=== PATIENT | male | born 1950 | race Caucasian/White ===

== ENCOUNTER 2017-01-12 08:10 | Outpatient (CLI) | payer MEDICARE, OTHER ==
[2017-01-12] MEDS ORDERED: IOPAMIDOL-300 50 ML VIAL IVP ONE (09:18)
== END 2017-01-12 08:11 | disposition home or self-care (01) ==
DX: Z85.51 Personal history of malignant neoplasm of bladder (principal); R31.29 Other microscopic hematuria; N40.1 Benign prostatic hyperplasia with lower urinary tract symptoms; R33.9 Retention of urine, unspecified; R35.1 Nocturia
CPT/HCPCS: 74178; Q9967

== ENCOUNTER 2017-08-13 09:04 | Outpatient (CLI) | payer MEDICARE, OTHER | END 2017-08-13 09:05 | disposition home or self-care (01) | LOC: LAB 09:04 | PROVIDERS: ATTEND Urology | DX: N40.1 Benign prostatic hyperplasia with lower urinary tract symptoms (principal); R35.1 Nocturia | CPT/HCPCS: 36415; 84153 ==

== ENCOUNTER 2018-04-26 15:42 | Outpatient (CLI) | payer MEDICARE, OTHER | END 2018-04-26 15:43 | disposition home or self-care (01) | LOC: LAB 15:42 | PROVIDERS: ATTEND Urology | DX: R97.20 Elevated prostate specific antigen [PSA] (principal) | CPT/HCPCS: 36415; 84153 ==

== ENCOUNTER 2019-05-24 15:36 | Outpatient (CLI) | payer MEDICARE, OTHER | END 2019-05-24 15:37 | disposition home or self-care (01) | LOC: LAB 15:36 | PROVIDERS: ATTEND Urology | DX: N40.1 Benign prostatic hyperplasia with lower urinary tract symptoms (principal); R97.20 Elevated prostate specific antigen [PSA] | CPT/HCPCS: 36415; 84153 ==

== ENCOUNTER 2019-09-09 09:40 | Outpatient (CLI) | payer MEDICARE, OTHER ==
--- NOTE | 2019-09-09 22:54 | MRI Report ---
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 CLINICAL HISTORY: Left-sided radiculopathy. COMPARISON: ABDOMEN/PELVIS W/WO 01/12/2017 8:48 AM LUMBAR SPINE COMPLETE 04/03/2014 4:18 PM. TECHNIQUE: Multiplanar, multisequence T1-weighted and fluid-sensitive sequences of the lumbar spine from T11 to S1 without contrast. Other: None. FINDINGS: Spinal Canal: The conus terminates at L1. The conus medullaris is unremarkable. Alignment: Retrolisthesis at L3-L4 measures 4 mm which appears slightly progressed compared to the prior CT of the abdomen and pelvis. Bone Marrow: Five [id number] lumbar vertebral bodies are confirmed on the CT. There is susceptibility artifact related to anterior and posterior fusion changes from L4-S1. Given this artifact, there is suggestion of mild type I Modic endplate changes posteriorly at L3-L4. Small chronic Schmorl's nodes are noted from all levels from T11-T12 throughL2-L3. Disk Levels/Facets: T11-T12: Unremarkable on sagittal images. T12-L1: A minimal disk bulge is present without spinal canal or foraminal stenosis. L1-L2: Unremarkable. L2-L3: There is mild right foraminal narrowing due to facet arthropathy. The spinal canal and left foramen are patent. L3-L4: A disk bulge with facet arthropathy, ligamentum flavum infolding, and dorsal epidural fat result in moderate spinal canal stenosis. Mild fluid is present in the facet joints, greater on the right. This results in moderate bilateral foraminal narrowing. These findings appear slightly progressed compared to the CT. L4-L5: Anterior and posterior fusion changes are present. The spinal canal and foramina appear patent. L5-S1: Anterior and posterior fusion changes are present. There appears to be a residual or recurrent right paracentral disk herniation resulting in mild spinal canal stenosis. It abuts but does not impinge the descending right S1 nerve root in the lateral recess. There is mild bilateral foraminal narrowing due to disk height loss and facet arthropathy. Musculature: There is mild to moderate diffuse fatty atrophy of the posterior paraspinal muscles, more prominent at the surgical levels. Other: The partially visualized retroperitoneum is unremarkable. IMPRESSION: 1. Degenerative changes at L3-L4 appear mildly progressed compared to the CT of the abdomen and pelvis from 01/12/17. There is moderate spinal canal stenosis at this level due to disk bulging, facet arthropathy, ligamentum flavum infolding, and prominent dorsal epidural fat. Moderate bilateral foraminal narrowing and type I Modic endplate changes are also present at this level. 2. The remainder of the conus medullaris and cauda equina are unremarkable. 3. No evidence of high-grade spinal canal or foraminal stenosis at any other lumbar level. Comment: The following findings are so common in adults without low back pain that while we report their presence, they must be interpreted with caution and in the context of the clinical situation. (Reference Lizzk et al, Spine 2001) Prevalence of findings in patients without low back pain: Disk degeneration (any evidence): 92% Disk desiccation/T2 signal loss: 83% Disk height loss: 56% Disk bulge: 64% Disk protrusion: 32% Annular tear/high intensity zone: 38% RADIA
== END 2019-09-09 09:41 | disposition home or self-care (01) ==
LOC: DI 09:40
PROVIDERS: ATTEND Physical Medicine & Rehabilitation Pain Medicine
DX: M47.816 Spondylosis without myelopathy or radiculopathy, lumbar region (principal); M51.26 Other intervertebral disc displacement, lumbar region; M48.061 Spinal stenosis, lumbar region without neurogenic claudication
CPT/HCPCS: 72148

== ENCOUNTER 2019-11-30 08:00 | Outpatient (CLI) | payer MEDICARE, OTHER | END 2019-11-30 23:59 | disposition home or self-care (01) | LOC: LAB 08:00 | PROVIDERS: ATTEND Urology | DX: N40.1 Benign prostatic hyperplasia with lower urinary tract symptoms (principal); R97.20 Elevated prostate specific antigen [PSA] | CPT/HCPCS: 36415; 84153 ==

== ENCOUNTER 2020-02-11 18:59 | Inpatient (IN) | payer MEDICARE, OTHER ==
[2020-02-11] MEDS ORDERED: oxyCODONE 5 MG TABLET PO STA (19:35)
[2020-02-11] MEDS ORDERED: CYCLOBENZAPRINE 10 MG TABLET PO STA (20:39)
[2020-02-11] MEDS ORDERED: LIDOCAINE PATCH 5% TOP STA (20:40)
--- NOTE | 2020-02-11 20:57 | CT Report ---
Reason: blunt back trauma, L lower thoracic Procedure Date: 02/11/2020 Accession Number: [id number] / [id number] Procedure: CT - CHEST WO CPT Code: Final Report FULL RESULT: EXAM: CT CHEST EXAM DATE: 02/11/2020 08:14 PM. CLINICAL HISTORY: Blunt back trauma, left lower thoracic. COMPARISONS: None. TECHNIQUE: Routine helical CT imaging was performed through the chest. IV contrast: None. Reconstructions: Coronal and sagittal. In accordance with CT protocol optimization, one or more of the following dose reduction techniques were utilized for this exam: automated exposure control, adjustment of mA and/or KV based on patient size, or use of iterative reconstructive technique. FINDINGS: Lungs/Pleura: Small left pneumothorax. No significant hemothorax. Lungs essentially clear with residual mild scarring/atelectasis. Mediastinum: The heart and great vessels appear unremarkable with exception of severe coronary calcifications. No adenopathy. Small hiatal hernia. Visualized Abdomen: Fatty liver. Previous cholecystectomy. Small left renal cyst. No imaging follow-up required per concensus recommendations based on imaging criteria. Bones: Acute appearing minimally displaced left eighth through tenth rib fractures. Additional acute left T9 and T10 transverse process fractures as well as fractures of the T8 and T9 spinous processes. Chronic appearing multilevel left-sided rib fractures with incomplete union at the eighth through tenth ribs laterally. No vertebral body fracture identified. Other: Post left thyroidectomy. IMPRESSION: 1. Small left pneumothorax secondary to minimally displaced acute left eighth through tenth rib fractures. 2. Acute left T9 and T10 left-sided transverse process fractures. Additional T8 and T9 spinous process fractures. 3. Severe coronary calcifications. 4. Small hiatal hernia. 5. Fatty liver. RADIA The critical result notification system was initiated by Dr. Elvis Banerjee at 08:50 PM on 02/11/2020. The above critical result findings were discussed with Woo Blunt by Dr. Elvis Banerjee at 08:52 PM on 02/11/2020.
--- NOTE | 2020-02-11 21:01 | ED Physician Documentation ---
History of Present Illness - Stated complaint Stated Complaint: BACK INJ FALL - Chief complaint Chief Complaint: Trauma Ch/Bk - History obtained from History obtained from: Patient - History of Present Illness Timing: Today Pain level max: 9 Pain level now: 9 - Additonal information Additional information: 69-year-old male presents to the emergency department after a fall off of a counter today. Landed on his back and left ribs. History of left rib fractures in the past. No head injury. No neck pain. Does not take blood thinners. Worse with movement and better with rest. Review of Systems Ten Systems: 10 systems reviewed and negative Constitutional: denies: Fever, Chills Ears: denies: Ear pain Nose: denies: Rhinorrhea / runny nose, Congestion Throat: denies: Sore throat Cardiac: denies: Chest pain / pressure Respiratory: denies: Cough GI: denies: Abdominal Pain, Nausea, Vomiting, Diarrhea Skin: denies: Rash Musculoskeletal: denies: Neck pain Neurologic: denies: Focal weakness, Numbness, Confused, Altered mental status, Headache PD PAST MEDICAL HISTORY - Past Medical History Cardiovascular: Hypertension, High cholesterol Respiratory: Shortness of breath, Other Endocrine/Autoimmune: Other GI: GERD, Other : Nocturia, Other HEENT: None Psych: Anxiety Musculoskeletal: Osteoarthritis Derm: None - Past Surgical History Past Surgical History: Yes General: Cholecystectomy, Appendectomy, Colonoscopy, EGD Ortho: Rotator cuff repair, Spine surgery HEENT: Tonsil/Adenoidectomy Derm: Skin cancer surgery, Other - Present Medications Home Medications: Ambulatory Orders Medication Instructions Recorded Confirmed Amlodipine Besylate 5 mg PO DAILY 05/12/13 03/04/15 Lisinopril 20 mg PO DAILY 05/12/13 03/04/15 Aspirin [Aspir 81] 81 mg PO DAILY 02/26/15 03/04/15 Pantoprazole [Protonix] 40 mg PO DAILY 02/26/15 03/04/15 allopurinoL [Allopurinol] 300 mg PO DAILY 02/26/15 03/04/15 Cephalexin 500 mg PO TID #15 capsule 12/06/15 HYDROcod/ACETAM 5/325 [[place] 5/325] 1 - 2 ea PO Q6H PRN #30 tablet 12/06/15 - Allergies Allergies/Adverse Reactions: Allergies Allergy/AdvReac Type Severity Reaction Status Date / Time No Known Drug Allergies Allergy Verified 02/11/20 19:06 - Social History Does the pt smoke?: No Smoking Status: Never smoker Does the pt drink ETOH?: Yes Does the pt have substance abuse?: No - Immunizations Immunizations are current?: Yes - POLST Patient has POLST: No PD ED PE NORMAL - Vitals Vital signs reviewed: Yes - General General: Alert and oriented X 3 - HEENT HEENT: Atraumatic, PERRL, Ears normal, Moist mucous membranes - Neck Neck: Supple, no meningeal sign, No bony TTP, Other (Full range of motion without pain. No step-off or deformity) - Cardiac Cardiac: RRR, Strong equal pulses - Respiratory Respiratory: No respiratory distress, Clear bilaterally - Abdomen Abdomen: Soft, Non tender, Non distended - Back Back: Other (Tender to palpation approximately T9 and 10. Also tender over the ribs approximately 8 through 11. Mild swelling. No crepitus. Left-sided ribs.) - Derm Derm: Warm and dry, No rash - Extremities Extremities: No deformity, No tenderness to palpate, Normal ROM s pain, No edema - Neuro Neuro: Alert and oriented X 3, re recording mixer 2-12 intact, No motor deficit, No sensory deficit, Normal speech Eye Opening: Spontaneous Motor: Obeys Commands Verbal: Oriented GCS Score: 15 - Psych Psych: Normal mood, Normal affect Results - Vitals Vitals: Vital Signs - 24 hr 02/11/20 19:06 Temperature 36.5 C Heart Rate 93 Respiratory 16 Rate Blood Pressure 155/74 H O2 Saturation 96 Oxygen O2 Source Room air - Labs Labs: Laboratory Tests 02/11/20 02/11/20 02/11/20 21:20 21:20 21:20 WBC 11.2 H RBC 4.43 L Hgb 15.1 Hct 45.3 MCV 102.3 H MCH 34.1 H MCHC 33.3 RDW 16.0 H Plt Count 224 MPV 10.6 Neut # (Auto) 8.1 H Lymph # (Auto) 1.8 Butler # (Auto) 1.0 Eos # (Auto) 0.2 Baso # (Auto) 0.1 Absolute Nucleated RBC 0.00 Nucleated RBC % 0.0 PT 10.9 INR 1.0 APTT 25.4 Sodium 139 Potassium 4.2 Chloride 102 Carbon Dioxide 24 Anion Gap 13.0 BUN 17 Creatinine 1.2 Estimated GFR (MDRD) 60 L Glucose 101 H Calcium 9.4 Total Bilirubin 0.7 AST 51 H ALT 59 Alkaline Phosphatase 66 Total Protein 7.7 Albumin 4.4 Globulin 3.3 Albumin/Globulin Ratio 1.3 Lipase 36 Ethyl Alcohol < 5.0 - Rads (name of study) CT chest without Radiology: Prelim report reviewed, EMP read contemporaneously, See rad report (1. Small left pneumothorax secondary to minimally displaced acute left eighth through tenth rib fractures. 2. Acute left T9 and T10 left-sided transverse process fractures. Additional T8 and T9 spinous process fractures. 3. Severe coronary calcifications. 4. Small hiatal hernia. 5. Fatty liver. ) PD MEDICAL DECISION MAKING - ED course Complexity details: reviewed results, re-evaluated patient, considered differential, d/w patient, d/w search engine optimization consultant ED course: Patient presents to the emergency department after a fall today at home. Has 2- 1/2 rib fractures. Nondisplaced. Has 2 left-sided transverse process fractures and 2 spinous process fractures. All of these would be nonoperative and supportive care. Neurovascularly intact. Has a small left pneumothorax that does not need a chest tube at this time. Discussed the case with Dr. Albarado, general surgery who will place the patient in observation and to reassess in the morning. We will place him in the hospital for pain control, incentive spirometry and pulmonary toilet. This document was made in part using voice recognition software. While efforts are made to proofread this document, sound alike and grammatical errors may occur. Departure - Departure Disposition: ED Place in Observation Clinical Impression: Pneumothorax on left, Spinous process fracture Ribs, multiple fractures Qualifiers: Encounter type: initial encounter Fracture type: closed Laterality: left Qualified Code(s): S22.42XA - Multiple fractures of ribs, left side, initial encounter for closed fracture Condition: Stable Discharge Date/Time: 02/11/20 22:36
[2020-02-11] MEDS ORDERED: HYDROmorphone 1 MG/ML CARPUJECT IVP STA (21:10)
[2020-02-11] MEDS ORDERED: SODIUM CHLORIDE FLUSH 0.9% 10 ML SYRINGE IVP PRN (21:23)
[2020-02-11] MEDS ORDERED: oxyCODONE 5 MG TABLET PO PRN (21:23)
[2020-02-11] MEDS ORDERED: ONDANSETRON 4 MG/2 ML VIAL IVP PRN (21:23)
[2020-02-11] MEDS ORDERED: HYDROmorphone 0.5 MG/0.5 ML SYRINGE IVP PRN (21:23)
[2020-02-11 21:29] LABS: BASOPHILS # (AUTO) 0.1 10^3/uL (0.0-0.1); BASOPHILS % (AUTO) 0.7 %; EOSINOPHILS # (AUTO) 0.2 10^3/uL (0.0-0.7); EOSINOPHILS % (AUTO) 1.5 %; HGB - HEMOGLOBIN 15.1 g/dL (14.0-18.0); LYMPHOCYTES # (AUTO) 1.8 10^3/uL (1.5-3.5); LYMPHOCYTES % (AUTO) 15.8 %; MEAN CORPUSCULAR HEMOGLOBIN 34.1 pg (27.0-31.0); MEAN CORPUSCULAR HGB CONC 33.3 g/dL (32.0-36.0); MEAN CORPUSCULAR VOLUME 102.3 fL (80.0-94.0); MEAN PLATELET VOLUME 10.6 fL (7.4-11.4); MONOCYTES % (AUTO) 9.2 %; NEUTROPHILS # (AUTO) 8.1 10^3/uL (1.5-6.6); NEUTROPHILS % (AUTO) 71.8 %; PLT - PLATELET COUNT 224 10^3/uL (130-450); RED BLOOD COUNT 4.43 10^6/uL (4.70-6.10); WHITE BLOOD COUNT 11.2 x10^3/uL (4.8-10.8)
[2020-02-11 21:33] LABS: PT - PROTHROMBIN TIME 10.9 secs (9.9-12.6)
[2020-02-11 21:44] LABS: PARTIAL THROMBOPLASTIN TIME 25.4 secs (24.9-33.3)
[2020-02-11 21:49] LABS: ALBUMIN 4.4 g/dL (3.2-5.5); ALBUMIN/GLOBULIN RATIO 1.3 (1.0-2.2); ALKALINE PHOSPHATASE 66 IU/L (42-121); ALT ALANINE AMINOTRANSFERASE 59 IU/L (10-60); AST ASPARTATE AMINOTRANSFERASE 51 IU/L (10-42); BILIRUBIN,TOTAL 0.7 mg/dL (0.2-1.0); BUN - BLOOD UREA NITROGEN 17 mg/dL (6-20); CALCIUM 9.4 mg/dL (8.5-10.3); CARBON DIOXIDE - CO2 24 mmol/L (21-32); CHLORIDE 102 mmol/L (101-111); CREATININE 1.2 mg/dL (0.6-1.2); GLUCOSE 101 mg/dL (70-100); LIPASE 36 U/L (22-51); SODIUM 139 mmol/L (135-145); TOTAL PROTEIN 7.7 g/dL (6.7-8.2)
[2020-02-11] MEDS: LACTATED RINGERS 1,000 ML IV SCH (23:00)
[2020-02-12] MEDS: SODIUM CHLORIDE FLUSH 0.9% 10 ML SYRINGE IVP SCH ×3 (00:17→17:03)
[2020-02-12] MEDS ORDERED: HYDROmorphone 0.5 MG/0.5 ML SYRINGE IVP PRN (00:47)
[2020-02-12] MEDS: GABAPENTIN 300 MG CAPSULE PO SCH ×4 (01:37→21:17)
[2020-02-12] MEDS: HYDROcod/ACETAM 10 MG/325 MG TABLET PO PRN ×5 (06:19→22:58)
[2020-02-12] MEDS: PANTOPRAZOLE 40 MG TABLET PO SCH (06:20)
[2020-02-12] MEDS: amLODIPine 5 MG TABLET PO SCH (09:01)
[2020-02-12] MEDS: allopurinoL 100 MG TABLET PO SCH (09:01)
[2020-02-12] MEDS: lisinopriL 20 MG TABLET PO SCH (09:01)
[2020-02-12] MEDS: HYDROmorphone 0.5 MG/0.5 ML SYRINGE IVP PRN ×4 (09:04→22:32)
--- NOTE | 2020-02-12 09:20 | XRAY Report ---
Reason: Left pneumothorax and rib fractures Procedure Date: 02/12/2020 Accession Number: [id number] / [id number] Procedure: XR - Chest 2 View X-Ray CPT Code: 01293 Final Report FULL RESULT: EXAM: CHEST RADIOGRAPHY EXAM DATE: 02/12/2020 08:20 AM. CLINICAL HISTORY: Left pneumothorax and rib fractures. COMPARISON: XR CHEST 1 VIEWS 01/04/2012 6:17 PM CHEST WO 02/11/2020 7:58 PM. TECHNIQUE: 2 views. FINDINGS: Lungs/Pleura: Small left pneumothorax with pleural separation measuring approximately 1.7 cm at the apex. No focal consolidation in the left lung. Streaky opacities in the right mid to lower lung field suggest atelectasis. Elevation of the right diaphragm is similar to prior CT. No large or increasing pleural effusion. Mediastinum: Heart and mediastinal contours are unremarkable. Other: Chronic appearing left-sided rib fracture deformities. Acute left rib fractures are better seen on recent prior CT. IMPRESSION: 1. Small left pneumothorax. Difficult to exactly compare to prior CT due to differences in technique. Probably similar or slightly increased. 2. Streaky right mid lung opacities likely reflect atelectasis. 3. Other findings as above. RADIA
[2020-02-12] MEDS ORDERED: KETOROLAC 30 MG/ML VIAL IVP PRN (12:01)
--- NOTE | 2020-02-12 12:05 | HISTORY & PHYSICAL EXAMINATION ---
Chief Complaint - Chief Complaint Chief Complaint: Pain after a fall History of Present Illness - Admitted From Admitted From:: ED - History Obtained From Records Reviewed: Provider's notes History obtained from: Patient Exam Limitations: None - History of Present Illness HPI Comment/Other: Mr. Reyes is an active 69 year old gentleman who sustained a fall in his barn yesterday while trying to help a hummingbird escape. He denies any loss of consciousness. He reports he struck his left side and back on a table as he f ell. He was able to stand and wall back to the house. He reports he is comfortable as long as he doesn't move. He denies any shortness of breath. He fell on his left side several years ago and sustained 6 rib fractures. He feels he knows what he is in for. He reports he has also had a neck fusion and has pre-existing upper extremity symptoms. He says his symptoms are positional and related his neck pain. He denies any nausea. He denies any pain in his legs. History - Past Medical History Cardiovascular: reports: Hypertension, High cholesterol Respiratory: reports: Shortness of breath, Other Endocrine/Autoimmune: reports: Other GI: reports: GERD, Other : reports: Nocturia, Other HEENT: reports: None Psych: reports: Anxiety Musculoskeletal: reports: Osteoarthritis Derm: reports: None MRSA Hx?: No - Past Surgical History General: reports: Cholecystectomy, Appendectomy, Colonoscopy, EGD Ortho: reports: Rotator cuff repair, Spine surgery HEENT: reports: Tonsil/Adenoidectomy Derm: reports: Skin cancer surgery, Other - POLST Patient has POLST: No Meds/Allgy - Home Medications Home Medications: Ambulatory Orders Medication Instructions Recorded Confirmed Aspirin [Aspir 81] 81 mg PO DAILY 02/26/15 03/04/15 Amlodipine Besylate 5 mg PO DAILY 02/12/20 02/12/20 Colchicine [Colcrys] 0.6 mg PO DAILY 02/12/20 02/12/20 Pantoprazole Sodium [Protonix] 40 mg PO QDAC 02/12/20 02/12/20 allopurinoL [Allopurinol] 300 mg PO DAILY 02/12/20 02/12/20 lisinopriL [Lisinopril] 20 mg PO DAILY 02/12/20 02/12/20 - Allergies Allergies/Adverse Reactions: Allergies Allergy/AdvReac Type Severity Reaction Status Date / Time No Known Drug Allergies Allergy Verified 02/11/20 19:06 Review of Systems - Constitutional Constitutional: denies: Weakness - Eyes Eyes: denies: Pain, Irritation, Blurred vision - Ears, Nose & Throat Ears, Nose & Throat: denies: Tinnitus, Vertigo - Cardiovascular Cariovascular: reports: Chest pain. denies: Irregular heart rate, Palpitations, Lightheadedness - Respiratory Respiratory: reports: Cough. denies: Wheezing - Gastrointestinal Gastrointestinal: denies: Abdominal pain, Abdominal distention, Nausea, Vomiting - Genitourinary Genitourinary: denies: Dysuria, Frequency, Urgency, Hematuria - Musculoskeletal Musculoskeletal: reports: Muscle pain, Back pain, Muscle aches, Stiffness, Limited range of motion, Joint pain - Integumentary Integumentary: denies: Rash - Neurological Neurological: reports: Numbness (Intermittent upper extremity numbness related to neck position and osteoarthritis). denies: Focal weakness, Headache - Hematologic/Lymphatic Hematologic/Lymphatic: denies: Anemia, Blood clots - All Other Systems All Other Systems: reports: Reviewed and negative Exam - Vital Signs Reviewed Vital Signs: Yes Vital Signs: Vital Signs x48h Temp Pulse Resp BP Pulse Ox 02/12/20 07:50 36.5 C 71 18 119/72 93 - Physical Exam General Appearance: positive: No acute distress, Alert Eyes Bilateral: positive: Normal inspection, PERRL, EOMI ENT: positive: ENT inspection nml, Pharynx nml, No signs of dehydration Neck: positive: Nml inspection, Thyroid nml, No JVD, Trachea midline. negative: Swelling/bruising Respiratory: positive: Other (Decreased breath sounds at the left base). negative: Chest non-tender (Chest is tender on the entire left and left posterior region. No obvous bruising.) Cardiovascular: positive: Regular rate & rhythm, No murmur. negative: Crepitus Peripheral Pulses: positive: 1+ Abdomen: positive: Non-tender, Nml bowel sounds, No distention. negative: Tenderness Back: positive: CVA tenderness (L). negative: CVA tenderness (R) Skin: positive: Color nml Extremities: positive: Non-tender, Nml appearance, No pedal edema Neurologic/Psychiatric: positive: Oriented x3, CN's nml (2-12) Conclusion/Plan - Problem List (1) Pneumothorax on left Conclusion/Plan: Stable on CXR this AM. Continue with lung inflation protocol. Ambulate today with assistance. (patient has a walker at home from previous injury) (2) Ribs, multiple fractures Conclusion/Plan: Add scheduled Toradol for improved pain control. Continue other medications and use of IS. Remove Stahl catheter this afternoon once the Toradol has begun to help with pain. Qualifiers: Encounter type: initial encounter Fracture type: closed Laterality: left Qualified Code(s): S22.42XA - Multiple fractures of ribs, left side, initial encounter for closed fracture - Lab Results Fish Bones: 02/11/20 21:20 02/11/20 21:20 - Diagnostic Imaging Results Diagnostic Imaging Results: positive: Final report reviewed Diagnostic Imaging Results Comments: Minimally displaced 8,9 and 10th rib fractures with a small associated pneumothorax Stable fractures of the 8-10 transverse process and/or spinous processes
--- NOTE | 2020-02-12 12:47 | PHARMACY PROGRESS NOTE ---
- Best Possible Medication History Admit Date and Time: 02/12/20 1159 Processed by: Pharmacy Medication History completed: Yes Patient Interview: Pt unable to participate Secondary Source(s): Pharmacy records, Insurance records As the person ultimately responsible for medication therapy, providers are able to order a medication from an existing home medication list in [facility] via the "Reconcile Routine" prior to Confirmation of that medication by user support analyst supervisor. Such practice is discouraged except when the physician, in their clinical judgment, deems that a medical need exists for a medication without regard to previous use.
[2020-02-12] MEDS: DOCUSATE SODIUM 250 MG CAPSULE PO SCH (12:50)
[2020-02-12 16:16] LABS: BASOPHILS # (AUTO) 0.1 10^3/uL (0.0-0.1); BASOPHILS % (AUTO) 0.8 %; EOSINOPHILS # (AUTO) 0.3 10^3/uL (0.0-0.7); EOSINOPHILS % (AUTO) 3.1 %; HGB - HEMOGLOBIN 13.2 g/dL (14.0-18.0); LYMPHOCYTES # (AUTO) 2.1 10^3/uL (1.5-3.5); LYMPHOCYTES % (AUTO) 22.7 %; MEAN CORPUSCULAR HEMOGLOBIN 34.5 pg (27.0-31.0); MEAN CORPUSCULAR HGB CONC 33.7 g/dL (32.0-36.0); MEAN CORPUSCULAR VOLUME 102.3 fL (80.0-94.0); MEAN PLATELET VOLUME 10.1 fL (7.4-11.4); MONOCYTES # (AUTO) 1.1 10^3/uL (0.0-1.0); MONOCYTES % (AUTO) 12.4 %; NEUTROPHILS # (AUTO) 5.5 10^3/uL (1.5-6.6); NEUTROPHILS % (AUTO) 60.1 %; PLT - PLATELET COUNT 173 10^3/uL (130-450); RED BLOOD COUNT 3.83 10^6/uL (4.70-6.10); RED CELL DISTRIBUTION WIDTH 15.7 % (12.0-15.0); WHITE BLOOD COUNT 9.1 x10^3/uL (4.8-10.8)
[2020-02-12 16:28] LABS: ALBUMIN 3.6 g/dL (3.2-5.5); ALBUMIN/GLOBULIN RATIO 1.4 (1.0-2.2); ALKALINE PHOSPHATASE 54 IU/L (42-121); ALT ALANINE AMINOTRANSFERASE 44 IU/L (10-60); AST ASPARTATE AMINOTRANSFERASE 38 IU/L (10-42); BILIRUBIN,TOTAL 1.2 mg/dL (0.2-1.0); BUN - BLOOD UREA NITROGEN 13 mg/dL (6-20); CALCIUM 7.9 mg/dL (8.5-10.3); CARBON DIOXIDE - CO2 25 mmol/L (21-32); CHLORIDE 96 mmol/L (101-111); CREATININE 1.3 mg/dL (0.6-1.2); GLUCOSE 111 mg/dL (70-100); SODIUM 131 mmol/L (135-145); TOTAL PROTEIN 6.2 g/dL (6.7-8.2)
[2020-02-12 16:30] LABS: VBG PH 7.413 (7.31-7.41)
--- NOTE | 2020-02-12 16:40 | XRAY Report ---
Reason: chest pain Procedure Date: 02/12/2020 Accession Number: [id number] / [id number] Procedure: XR - Chest 1 View X-Ray CPT Code: 75946 Final Report FULL RESULT: EXAM: CHEST RADIOGRAPHY EXAM DATE: 02/12/2020 04:05 PM. CLINICAL HISTORY: Chest pain. COMPARISON: CHEST 2 VIEW 02/12/2020 8:01 AM. TECHNIQUE: 1 view. FINDINGS: Lungs/Pleura: Mild bibasilar atelectasis. No focal opacities evident. No pleural effusion. No pneumothorax. Mediastinum: Within exam limitations, the cardiomediastinal contour is normal. Other: Surgical clips are seen in soft tissues of neck/paratracheal location. Old healed fracture of the angle of seventh rib. IMPRESSION: Mild bibasilar atelectasis. No focal opacities. No pulmonary edema. RADIA
[2020-02-12] MEDS ORDERED: KETOROLAC 15 MG/ML VIAL IVP PRN (16:43)
[2020-02-12] MEDS ORDERED: LORazepam 2 MG/ML VIAL IVP PRN (17:30)
[2020-02-12] MEDS ORDERED: NITROGLYCERIN SL 0.4 MG TABLET SL PRN (17:30)
[2020-02-12] MEDS: LACTATED RINGERS 1,000 ML IV SCH (17:42)
[2020-02-12] MEDS: SODIUM CHLORIDE 0.9% 1,000 ML IV SCH (18:48)
--- NOTE | 2020-02-12 19:12 | CONSULTATION NOTE ---
DATE OF SERVICE: 02/12/2020 Physician: Mesha Dubose MD PRIMARY CARE PHYSICIAN: Luisana Gordon MD HISTORY OF PRESENT ILLNESS: This is a 69-year-old white male with a history of hypertension and hyperlipidemia, ex-smoker who 19 years ago, is admitted here after a fall in his barn and has sustained multiple fractures of the ribs of the left side, as well as fractures of the transverse processes. Patient is on the surgical/trauma service. He was initially placed in observation for pain management and followup of a pneumothorax. He has been made an inpatient for continued uncontrolled pain in the areas where he had the fractures. This afternoon, while sitting in his bed and watching TV, he developed anterior chest pressure, unlike the stabbing pain of the rib fractures and spine. This was associated with diaphoresis. He also admits to shortness of breath and dizziness when this happened. It lasted about 10 minutes and then subsided. He rates the discomfort as a 2/10. It then recurred again and also then let up. He did tell his nurse about it. The nurse informed the attending doctor, who has ordered an EKG and chest x-ray and troponins. The chest x-ray came back showing resolution of the pneumothorax. EKG has returned showing sinus rhythm with right bundle branch block, which is similar to his last one done about 2 months ago. The troponin has come back normal at a value of 5.7. ALLERGIES: NONE. MEDICATIONS Before this admission: 1. Allopurinol 300 mg a day. 2. Amlodipine 5 mg daily. 3. Colchicine 0.6 mg daily. 4. Lisinopril 20 mg daily. 5. Protonix 40 mg daily. 6. Depo testosterone IM every 2 weeks. 7. Baby aspirin daily. SOCIAL HISTORY: Patient quit smoking 19 years ago. Patient is consuming alcohol daily. He describes 4-5 beers a day. He states he has never had alcohol withdrawal. Illicit drug use history is negative. PAST SURGICAL HISTORY 1. Cholecystectomy. 2. Appendectomy. 3. EGD and colonoscopy. 4. Spine surgery. 5. Rotator cuff surgery. 6. Tonsil and adenoid surgery. 7. Skin cancer surgery. FAMILY HISTORY: No inherited diseases. REVIEW OF SYSTEMS: Patient states that about 2 years ago, he underwent a stress test because of an abnormal EKG. He describes that he "failed a stress test in Stage I". He went on to have a coronary angiogram done at [facility]. He states that the security project manager was "stumped and had to call in a colleague." He then was told he has no coronary blockages. At this admission, he underwent a CT scan of the chest, and this found the pneumothorax, and also it was read as having severe coronary calcifications. Patient describes that he does get these types of chest pressure symptoms occasionally and for them he takes an aspirin. He does not admit to how often these occur. He denies any palpitations, syncope, leg edema. A comprehensive review of systems was performed, and the pertinent positives are listed, rest are negative. PHYSICAL EXAMINATION GENERAL: White male who has boris, leathery complex and diaphoretic versus unkempt, but is currently in no distress. VITAL SIGNS: Blood pressure 120/70, heart rate 77 in sinus rhythm, afebrile, room air saturation 93%. HEENT: Leathery skin and bulbous red nose. NECK: No JVD or carotid bruits. CHEST: Diminished breath sounds diffusely, but no rales or rhonchi. HEART: Normal S1, S2, with no murmur or rub. ABDOMEN: Soft, nontender. Normal bowel sounds. EXTREMITIES: No clubbing, cyanosis, or edema. NEUROLOGIC: Grossly intact. There is no tremor. LABORATORY DATA: He had normal electrolytes and BUN and creatinine on admission and on day #2 the sodium went down to 131. The creatinine went up from 1.2 to 1.3. Bilirubin went up from 0.7 to 1.2. Lipase is normal on admission. INR is normal. CBC has a white count of 11 that decreased to 9.1, hemoglobin 15, then 13.2, but he is getting lactated Ringer's hydration, and MCV is elevated at 102. EKG: Normal sinus rhythm at a rate of 73, right bundle branch block, right axis deviation, poor R-wave progression and there is no change from an EKG done 11/2019. CHEST X-RAY: Reexpanded pneumothorax area and no other disease. IMPRESSION/DIAGNOSES 1. Angina. 2. Abnormal EKG. 3. Alcohol abuse with high MCV, and now elevated bilirubin, which could be a phase reactant. 4. Rib fractures, multiple, on the left. 5. Pneumothorax. 6. Traumatic fracture of thoracic spine, spinal processes. 7. Fall at home. 8. Hypertension. 9. Elevated cholesterol 10. History of gout. PLAN: Place patient on telemetry. Since his symptom is very typical for angina, begin order for sublingual nitroglycerin p.r.n. chest pain. Recycle troponins at least 1 more time, preferably 2 more times. Obtain the angiogram report from [facility], done about 2 years ago, to confirm if he has or does not have CAD. Start CIWA protocol for managing potential alcohol withdrawal, since he has been without alcohol now for about a day and a half. IV Ativan p.r.n. will be used for the CIWA protocol, and start the patient on daily oral Thiamine. Recommend changing his IV fluids to saline. Consideration for an Echo if there is a change in his clinical status or a rule-in of myocardial infarction by troponins. DEEP VENOUS THROMBOSIS PROPHYLAXIS: SCDs. CODE STATUS: FULL CODE. Thank you for allowing this hospitalist to participate in the care of this patient. cc: Viridiana Albarado MD TD: 02/12/2020 17:47 MTDD
[2020-02-12] MEDS ORDERED: PANTOPRAZOLE 40 MG TABLET PO SCH (21:00)
[2020-02-13] MEDS: HYDROmorphone 0.5 MG/0.5 ML SYRINGE IVP PRN ×3 (00:49→09:28)
[2020-02-13] MEDS: SODIUM CHLORIDE FLUSH 0.9% 10 ML SYRINGE IVP SCH ×3 (00:52→16:19)
[2020-02-13] MEDS: HYDROcod/ACETAM 10 MG/325 MG TABLET PO PRN ×3 (04:26→16:34)
[2020-02-13] MEDS: SODIUM CHLORIDE 0.9% 1,000 ML IV SCH ×2 (04:26→13:43)
[2020-02-13] MEDS: GABAPENTIN 300 MG CAPSULE PO SCH ×2 (05:53→13:27)
[2020-02-13] MEDS: PANTOPRAZOLE 40 MG TABLET PO SCH ×2 (05:54→09:22)
[2020-02-13] MEDS ORDERED: THIAMINE 100 MG TABLET PO SCH (09:00)
--- NOTE | 2020-02-13 09:17 | XRAY Report ---
Reason: Left pneumothorax Procedure Date: 02/13/2020 Accession Number: [id number] / [id number] Procedure: XR - Chest 2 View X-Ray CPT Code: 46634 Final Report FULL RESULT: EXAM: CHEST RADIOGRAPHY EXAM DATE: 02/13/2020 09:03 AM. CLINICAL HISTORY: Left pneumothorax. COMPARISON: CHEST 1 VIEW 02/12/2020 3:47 PM. TECHNIQUE: 2 views. FINDINGS: Lungs/Pleura: Small left apical pneumothorax with 14 mm of pleural separation, previously 11 mm. Right hemidiaphragm elevation again demonstrated. New bandlike right basilar probable atelectasis. Decreased left basilar atelectasis. No gerhard pleural effusion. Mediastinum: Heart and mediastinal contours are unremarkable. Other: Old, healed left rib fracture redemonstrated. Surgical clips near the left base of the neck redemonstrated. IMPRESSION: 1. Small left apical pneumothorax, pleural separation 14 mm, previously 11 mm 2. Bibasilar atelectasis, increased on the right and decreased on the left. RADIA
[2020-02-13] MEDS: amLODIPine 5 MG TABLET PO SCH (09:22)
[2020-02-13] MEDS: allopurinoL 100 MG TABLET PO SCH (09:22)
[2020-02-13] MEDS: DOCUSATE SODIUM 250 MG CAPSULE PO SCH (09:23)
[2020-02-13] MEDS: lisinopriL 20 MG TABLET PO SCH (09:23)
[2020-02-13] MEDS ORDERED: HYDROmorphone 1 MG/ML CARPUJECT IVP PRN (09:55)
[2020-02-13 11:06] LABS: HGB - HEMOGLOBIN 13.4 g/dL (14.0-18.0); MEAN CORPUSCULAR HEMOGLOBIN 34.4 pg (27.0-31.0); MEAN CORPUSCULAR HGB CONC 33.7 g/dL (32.0-36.0); MEAN CORPUSCULAR VOLUME 102.1 fL (80.0-94.0); MEAN PLATELET VOLUME 10.4 fL (7.4-11.4); RED BLOOD COUNT 3.9 10^6/uL (4.70-6.10); RED CELL DISTRIBUTION WIDTH 15.3 % (12.0-15.0); WHITE BLOOD COUNT 9.1 x10^3/uL (4.8-10.8)
[2020-02-13 11:17] LABS: ALBUMIN 3.7 g/dL (3.2-5.5); ALBUMIN/GLOBULIN RATIO 1.3 (1.0-2.2); ALKALINE PHOSPHATASE 57 IU/L (42-121); ALT ALANINE AMINOTRANSFERASE 41 IU/L (10-60); AST ASPARTATE AMINOTRANSFERASE 39 IU/L (10-42); BILIRUBIN,TOTAL 0.7 mg/dL (0.2-1.0); BUN - BLOOD UREA NITROGEN 12 mg/dL (6-20); CALCIUM 7.8 mg/dL (8.5-10.3); CARBON DIOXIDE - CO2 26 mmol/L (21-32); CHLORIDE 100 mmol/L (101-111); CREATININE 1.1 mg/dL (0.6-1.2); GLUCOSE 124 mg/dL (70-100); SODIUM 134 mmol/L (135-145); TOTAL PROTEIN 6.5 g/dL (6.7-8.2)
[2020-02-13 11:22] LABS: VBG PH 7.344 (7.31-7.41)
[2020-02-13 15:38] VITALS: BP 120/63
--- NOTE | 2020-02-13 18:21 | Discharge Plan ---
Discharge Plan Problem Reviewed?: Yes Disposition: Home, Self Care Condition: Good Prescriptions: HYDROcodone/ACET 10/325 [[place] 10 mg/325 mg] 1 tab PO Q4HR PRN #30 tablet PRN Reason: Pain Docusate Sodium 250Mg Capsule [Colace 250Mg Capsule] 250 mg PO DAILY #30 capsule Gabapentin [Neurontin] 300 mg PO TID #90 capsule Diet: Regular Activity Restrictions: Do not lift greater than 5 pounds Shower Restrictions: No No Smoking: If you smoke, Please STOP! Call for help. Follow-up with: Luisana Gordon MD [Primary Care Provider] -
--- NOTE | 2020-02-13 18:22 | DISCHARGE SUMMARY ---
"Discharge Summary Admit Date: 02/11/20 Discharge Date: 02/13/20 Discharging Provider: Per Primary Care Provider: Evan Code Status: Attempt Resuscitation Condition at Discharge: Good Discharge Disposition: 01 Home, Self Care - DIAGNOSES Admission Diagnoses: Trauma with multiple rib fracture, spinous process and vertebral body fractures Discharge Diagnoses with Status of Each Condition: Improving - HPI History of Present Illness: Mr. Reyes is an active 69 year old gentleman who sustained a fall in his barn yesterday while trying to help a hummingbird escape. He denies any loss of consciousness. He reports he struck his left side and back on a table as he fell. He was able to stand and wall back to the house. - CONSULTS | PROCEDURES Consultations: Hospitalist Procedures: None - HOSPITAL COURSE Hospital Course: The patient was admitted for pain control and supportive care. Pain was initially out of control but this improved over the next 36 hours. On the afternoon of 02/11, Mr. Reyes complained of chest pressure and sweating. Dr. Sutton of the Hospitalist service was consulted. Cardiac workup revealed a stable right bundle branch block, stable CXR, and reassuring troponin and other labs. The pain resolved and did not recur. The patient is walking unassisted with the help of a walker for stability. He is tolerating a regular diet and pain has been controlled today with oral medications. He is discharged to his home in the care of his family. - ALLERGIES Allergies/Adverse Reactions: Allergies Allergy/AdvReac Type Severity Reaction Status Date / Time No Known Drug Allergies Allergy Verified 02/11/20 19:06 - MEDICATIONS Home Medications: Ambulatory Orders Medication Instructions Recorded Confirmed Aspirin [Aspir 81] 81 mg PO DAILY 02/26/15 02/12/20 Amlodipine Besylate 5 mg PO DAILY 02/12/20 02/12/20 Colchicine [Colcrys] 0.6 mg PO DAILY 02/12/20 02/12/20 Pantoprazole Sodium [Protonix] 40 mg PO QDAC 02/12/20 02/12/20 Testosterone Cypionate 200 mg IM Q14D 02/12/20 02/12/20 [Depo-Testosterone] allopurinoL [Allopurinol] 300 mg PO DAILY 02/12/20 02/12/20 lisinopriL [Lisinopril] 20 mg PO DAILY 05/25/20 05/25/20 Docusate Sodium 250Mg Capsule 250 mg PO DAILY #30 capsule 02/13/20 [Colace 250Mg Capsule] Gabapentin [Neurontin] 300 mg PO TID #90 capsule 02/13/20 HYDROcodone/ACET 10/325 [[place] 10 1 tab PO Q4HR PRN #30 tablet 02/13/20 mg/325 mg] Pantoprazole [Protonix] 40 mg PO QDAC tablet 02/13/20 allopurinoL [Zyloprim] 300 mg PO DAILY tablet 02/13/20 amLODIPine [Norvasc] 5 mg PO DAILY tablet 02/13/20 - PHYSICAL EXAM AT DISCHARGE General Appearance: positive: No acute distress, Alert Eyes Bilateral: positive: Normal inspection, PERRL, EOMI ENT: positive: ENT inspection nml, Pharynx nml, No signs of dehydration Neck: positive: Nml inspection, No JVD, Trachea midline Respiratory: positive: Other (Breath sounds still slightly decreased at the left base. Good air movement) Cardiovascular: positive: Regular rate & rhythm Peripheral Pulses: positive: 0 Abdomen: positive: Non-tender, Nml bowel sounds Back: positive: CVA tenderness (L) Skin: positive: Color nml Extremities: positive: Non-tender - LABS Result Diagrams: 02/13/20 10:54 02/13/20 10:54 - DIAGNOSTIC IMAGING Diagnostic Imaging Results Comments: Stable small left pneumothorax with improved lung aeration - QUALITY (Female Hip Fx Only) Was patient sent home on osteoporosis medication?: No - FOLLOW UP Follow Up: [address] Albarado - TIME SPENT Time Spent in Discharge (Minutes): 30"
[2020-02-14] MEDS ORDERED: CALCIUM CITRATE 250 MG TABLET PO SCH (09:00)
== END 2020-02-13 18:40 | disposition home or self-care (01) | DRG 200 ==
LOC: ED 18:59 → MS2 21:23 → OBSVTOIN 02-12 11:59
PROVIDERS: ADMIT Surgery; ATTEND Surgery
DX: S27.0XXA Traumatic pneumothorax, initial encounter (principal); S22.42XA Multiple fractures of ribs, left side, initial encounter for closed fracture; S22.079A Unspecified fracture of T9-T10 vertebra, initial encounter for closed fracture; S22.069A Unspecified fracture of T7-T8 vertebra, initial encounter for closed fracture; I20.9 Angina pectoris, unspecified; F10.10 Alcohol abuse, uncomplicated; I45.10 Unspecified right bundle-branch block; M10.9 Gout, unspecified; I10 Essential (primary) hypertension; E78.5 Hyperlipidemia, unspecified; K21.9 Gastro-esophageal reflux disease without esophagitis; R35.1 Nocturia; W17.89XA Other fall from one level to another, initial encounter; Y92.71 Barn as the place of occurrence of the external cause; Z98.1 Arthrodesis status; E78.00 Pure hypercholesterolemia, unspecified; Z79.82 Long term (current) use of aspirin; Z87.891 Personal history of nicotine dependence
CPT/HCPCS: 36415; 51702; 71045; 71046; 71250; 80053; 82330; 83690; 83880; 84484; 85025; 85027; 85610; 85730; 93005; 96374; 96376; 99285; A9270; G0378; J1170; J7120; 80320

== ENCOUNTER 2020-03-15 10:17 | Outpatient (CLI) | payer MEDICARE, OTHER ==
[2020-03-15 10:34] LABS: BASOPHILS # (AUTO) 0.1 10^3/uL (0.0-0.1); BASOPHILS % (AUTO) 1.2 %; EOSINOPHILS # (AUTO) 0.5 10^3/uL (0.0-0.7); EOSINOPHILS % (AUTO) 6.4 %; HGB - HEMOGLOBIN 15.2 g/dL (14.0-18.0); LYMPHOCYTES # (AUTO) 1.7 10^3/uL (1.5-3.5); LYMPHOCYTES % (AUTO) 22.6 %; MEAN CORPUSCULAR HEMOGLOBIN 34.3 pg (27.0-31.0); MEAN CORPUSCULAR HGB CONC 34.6 g/dL (32.0-36.0); MEAN CORPUSCULAR VOLUME 99.1 fL (80.0-94.0); MEAN PLATELET VOLUME 10.8 fL (7.4-11.4); MONOCYTES # (AUTO) 0.8 10^3/uL (0.0-1.0); MONOCYTES % (AUTO) 10.6 %; NEUTROPHILS # (AUTO) 4.3 10^3/uL (1.5-6.6); NEUTROPHILS % (AUTO) 58.3 %; PLT - PLATELET COUNT 203 10^3/uL (130-450); RED BLOOD COUNT 4.43 10^6/uL (4.70-6.10); RED CELL DISTRIBUTION WIDTH 15.9 % (12.0-15.0); WHITE BLOOD COUNT 7.5 x10^3/uL (4.8-10.8)
[2020-03-15 10:52] LABS: ALBUMIN 4.5 g/dL (3.2-5.5); ALBUMIN/GLOBULIN RATIO 1.6 (1.0-2.2); ALKALINE PHOSPHATASE 69 IU/L (42-121); ALT ALANINE AMINOTRANSFERASE 51 IU/L (10-60); AST ASPARTATE AMINOTRANSFERASE 43 IU/L (10-42); BILIRUBIN,TOTAL 0.6 mg/dL (0.2-1.0); BUN - BLOOD UREA NITROGEN 10 mg/dL (6-20); CALCIUM 8.8 mg/dL (8.5-10.3); CARBON DIOXIDE - CO2 24 mmol/L (21-32); CHLORIDE 105 mmol/L (101-111); CHOL/HDL RATIO 3.6 (<5.0); CHOLESTEROL 190 mg/dL; GLUCOSE 96 mg/dL (70-100); HDL CHOLESTEROL 53 mg/dL; LDL CHOLESTEROL,CALCULATED 120 mg/dL; LDL/HDL RATIO 2.3 (<3.6); SODIUM 138 mmol/L (135-145); TOTAL PROTEIN 7.4 g/dL (6.7-8.2); VLDL CHOLESTEROL 17 mg/dL
== END 2020-03-15 10:18 | disposition home or self-care (01) ==
LOC: LAB 10:17
PROVIDERS: ATTEND Internal Medicine
DX: Z12.5 Encounter for screening for malignant neoplasm of prostate (principal); Z79.899 Other long term (current) drug therapy; I10 Essential (primary) hypertension; E78.1 Pure hyperglyceridemia
CPT/HCPCS: 36415; 80053; 80061; 84443; 85025; G0103; 83721; 84153

== ENCOUNTER 2020-03-20 14:56 | Outpatient (CLI) | payer MEDICARE, OTHER ==
--- NOTE | 2020-03-20 16:39 | XRAY Report ---
PROCEDURE: Foot 3 View BILAT INDICATIONS: ARTHRALGIA, IDIOPATHIC PERIPHERAL NEUROPATHY TECHNIQUE: 3 views of the foot were acquired. COMPARISON: None FINDINGS: Bones: No fractures or dislocations. No suspicious bony lesions. There is mild to moderate first M TP degenerative narrowing bilaterally. Scattered IP degenerative narrowing is present bilaterally. Mi nimal scattered areas of IP subchondral lucency are present most notable at the first MTP and first D IP joints bilaterally. Soft tissues: No tibiotalar joint effusion. Achilles tendon appears normal. IMPRESSION: Mild bilateral degenerative changes most notable at the first MTP joint as above. Areas of subchondra l lucency can represent degenerative cysts versus small areas of developing erosion. Reviewed by: Tuyet Renae MD on 03/20/2020 4:37 PM PDT Approved by: Tuyet Renae MD on 03/20/2020 4:37 PM PDT Station ID: [id number]
--- NOTE | 2020-03-20 16:41 | XRAY Report ---
PROCEDURE: Hand 3 View BILAT INDICATIONS: ARTHRALGIA, IDIOPATHIS PERIPHERAL NEUROPATHY TECHNIQUE: 3 views of the hand(s) acquired. COMPARISON: None FINDINGS: Bones: No fractures or dislocations. No suspicious bony lesions. Bilateral mild to moderate scatte red areas of IP degenerative narrowing are present. Very minimal periarticular osteophytes are presen t bilaterally. There are scattered areas of mild periarticular lucencies most notable at the PIP and DIP joint of the second fifth digits of the right hand. Similar areas are noted on the left lucency i s also noted at the distal second and third right metacarpal heads. There is sclerosis and partial co llapse of the left capitate bone. Soft tissues: No suspicious soft tissue calcifications. IMPRESSION: Scattered areas of IP degenerative narrowing and subchondral lucencies as above. The latter could be accounts payable representative of degenerative cysts. However, small developing areas of erosion cannot be excluded. Reviewed by: Tuyet Renae MD on 03/20/2020 4:40 PM PDT Approved by: Tuyet Renae MD on 03/20/2020 4:40 PM PDT Station ID: [id number]
== END 2020-03-20 14:57 | disposition home or self-care (01) ==
LOC: DI 14:56
PROVIDERS: ATTEND Internal Medicine
DX: M19.072 Primary osteoarthritis, left ankle and foot (principal); M19.071 Primary osteoarthritis, right ankle and foot; M19.042 Primary osteoarthritis, left hand; M19.041 Primary osteoarthritis, right hand; R93.6 Abnormal findings on diagnostic imaging of limbs

== ENCOUNTER 2020-06-20 10:00 | Outpatient (CLI) | payer MEDICARE, OTHER ==
[2020-06-20 10:30] LABS: BASOPHILS # (AUTO) 0.1 10^3/uL (0.0-0.1); EOSINOPHILS # (AUTO) 0.3 10^3/uL (0.0-0.7); EOSINOPHILS % (AUTO) 3.7 %; HGB - HEMOGLOBIN 15.9 g/dL (14.0-18.0); LYMPHOCYTES # (AUTO) 2.2 10^3/uL (1.5-3.5); LYMPHOCYTES % (AUTO) 27.6 %; MEAN CORPUSCULAR HEMOGLOBIN 33.2 pg (27.0-31.0); MEAN CORPUSCULAR HGB CONC 34.2 g/dL (32.0-36.0); MEAN CORPUSCULAR VOLUME 97.1 fL (80.0-94.0); MEAN PLATELET VOLUME 10.2 fL (7.4-11.4); MONOCYTES # (AUTO) 0.9 10^3/uL (0.0-1.0); MONOCYTES % (AUTO) 11.3 %; NEUTROPHILS # (AUTO) 4.4 10^3/uL (1.5-6.6); NEUTROPHILS % (AUTO) 55.5 %; PLT - PLATELET COUNT 181 10^3/uL (130-450); RED BLOOD COUNT 4.79 10^6/uL (4.70-6.10); RED CELL DISTRIBUTION WIDTH 14.8 % (12.0-15.0); WHITE BLOOD COUNT 7.9 x10^3/uL (4.8-10.8)
[2020-06-20 10:38] LABS: CALCIUM 9.4 mg/dL (8.5-10.3); CREATININE 1.1 mg/dL (0.6-1.2)
== END 2020-06-20 10:01 | disposition home or self-care (01) ==
LOC: RT 10:00
PROVIDERS: ATTEND Orthopaedic Surgery
DX: Z01.818 Encounter for other preprocedural examination (principal)
CPT/HCPCS: 36415; 80048; 85025; 93005

== ENCOUNTER 2020-11-12 12:02 | Outpatient (CLI) | payer MEDICARE, OTHER ==
[2020-11-12 12:26] LABS: BASOPHILS # (AUTO) 0.1 10^3/uL (0.0-0.1); BASOPHILS % (AUTO) 1.3 %; EOSINOPHILS # (AUTO) 0.3 10^3/uL (0.0-0.7); EOSINOPHILS % (AUTO) 3.2 %; HCT - HEMATOCRIT 45.6 % (42.0-52.0); HGB - HEMOGLOBIN 15.6 g/dL (14.0-18.0); LYMPHOCYTES # (AUTO) 2.2 10^3/uL (1.5-3.5); LYMPHOCYTES % (AUTO) 27.4 %; MEAN CORPUSCULAR HEMOGLOBIN 34.5 pg (27.0-31.0); MEAN CORPUSCULAR HGB CONC 34.2 g/dL (32.0-36.0); MEAN CORPUSCULAR VOLUME 100.9 fL (80.0-94.0); MEAN PLATELET VOLUME 10.2 fL (7.4-11.4); MONOCYTES % (AUTO) 12.2 %; NEUTROPHILS # (AUTO) 4.3 10^3/uL (1.5-6.6); NEUTROPHILS % (AUTO) 54.9 %; PLT - PLATELET COUNT 213 10^3/uL (130-450); RED BLOOD COUNT 4.52 10^6/uL (4.70-6.10); RED CELL DISTRIBUTION WIDTH 14.7 % (12.0-15.0); WHITE BLOOD COUNT 7.9 x10^3/uL (4.8-10.8)
[2020-11-12 12:46] LABS: ALBUMIN 4.6 g/dL (3.2-5.5); ALBUMIN/GLOBULIN RATIO 1.5 (1.0-2.2); ALKALINE PHOSPHATASE 72 IU/L (42-121); ALT ALANINE AMINOTRANSFERASE 47 IU/L (10-60); AST ASPARTATE AMINOTRANSFERASE 46 IU/L (10-42); BILIRUBIN,TOTAL 0.8 mg/dL (0.2-1.0); BUN - BLOOD UREA NITROGEN 16 mg/dL (6-20); CARBON DIOXIDE - CO2 25 mmol/L (21-32); CHLORIDE 99 mmol/L (101-111); CHOL/HDL RATIO 3.2 (<5.0); CHOLESTEROL 198 mg/dL; CREATININE 1.2 mg/dL (0.6-1.2); GFR - MDRD 60 (>89); GLUCOSE 96 mg/dL (70-100); HDL CHOLESTEROL 61 mg/dL; LDL CHOLESTEROL,CALCULATED 111 mg/dL; LDL/HDL RATIO 1.8 (<3.6); POTASSIUM 4.7 mmol/L (3.5-5.0); SODIUM 138 mmol/L (135-145); TOTAL PROTEIN 7.6 g/dL (6.7-8.2); TRIGLYCERIDES 130 mg/dL; URIC ACID 4.5 mg/dL (2.6-7.2); VLDL CHOLESTEROL 26 mg/dL
== END 2020-11-12 12:03 | disposition home or self-care (01) ==
LOC: LAB 12:02
PROVIDERS: ATTEND Family Medicine
DX: I10 Essential (primary) hypertension (principal); Z79.899 Other long term (current) drug therapy; D50.9 Iron deficiency anemia, unspecified; E78.1 Pure hyperglyceridemia; M10.9 Gout, unspecified
CPT/HCPCS: 36415; 80053; 80061; 83721; 84153; 84443; 84550; 85025; 85651

== ENCOUNTER 2021-06-10 10:28 | Outpatient (CLI) | payer MEDICARE, OTHER | END 2021-06-10 10:29 | disposition home or self-care (01) | LOC: LAB 10:28 | PROVIDERS: ATTEND Urology | DX: Z87.898 Personal history of other specified conditions (principal); R97.20 Elevated prostate specific antigen [PSA] | CPT/HCPCS: 36415; 84153 ==

== ENCOUNTER 2022-01-06 04:11 | Emergency (ER) | payer MEDICARE, OTHER ==
[2022-01-06] MEDS ORDERED: SODIUM CHLORIDE 0.9% 1,000 ML IV STA (04:41)
[2022-01-06 05:02] LABS: BASOPHILS # (AUTO) 0.1 10^3/uL (0.0-0.1); BASOPHILS % (AUTO) 1.3 %; EOSINOPHILS # (AUTO) 0.3 10^3/uL (0.0-0.7); EOSINOPHILS % (AUTO) 3.2 %; HCT - HEMATOCRIT 42.1 % (42.0-52.0); HGB - HEMOGLOBIN 14.9 g/dL (14.0-18.0); LYMPHOCYTES # (AUTO) 3.4 10^3/uL (1.5-3.5); LYMPHOCYTES % (AUTO) 35.8 %; MEAN CORPUSCULAR HEMOGLOBIN 35.1 pg (27.0-31.0); MEAN CORPUSCULAR HGB CONC 35.4 g/dL (32.0-36.0); MEAN CORPUSCULAR VOLUME 99.1 fL (80.0-94.0); MEAN PLATELET VOLUME 10.7 fL (7.4-11.4); MONOCYTES # (AUTO) 1.1 10^3/uL (0.0-1.0); MONOCYTES % (AUTO) 11.7 %; NEUTROPHILS # (AUTO) 4.4 10^3/uL (1.5-6.6); NEUTROPHILS % (AUTO) 47.3 %; PLT - PLATELET COUNT 195 10^3/uL (130-450); RED BLOOD COUNT 4.25 10^6/uL (4.70-6.10); RED CELL DISTRIBUTION WIDTH 13.1 % (12.0-15.0); WHITE BLOOD COUNT 9.4 x10^3/uL (4.8-10.8)
--- NOTE | 2022-01-06 05:02 | ED Physician Documentation ---
History of Present Illness - Stated complaint Stated Complaint: ETOH - Chief complaint Chief Complaint: Ext Problem - History obtained from History obtained from: Patient - Additonal information Additional information: Patient is a 71-year-old male with a history significant for daily alcohol use and hypertension presenting for evaluation of Bilateral leg weakness and cramping.Patient was up with his daughter drinking alcohol this evening, approximately 4-5 beers, which per his daughter is normal for him. He went outside to use the bathroom and slumped down Due to feeling weak in his legs and having a charley horse in the left leg. He did not hit his head or lose consciousness. He had trouble standing afterwards due to weakness and daughter drove him to the emergency department. Recently, patient denies other new symptoms such as a headache, chest pain, difficulty breathing, abdominal pain, vomiting or diarrhea. He does have a history of lower extremity neuropathy which he states he has seen his doctor for but they do not do anything about. Review of Systems Constitutional: denies: Fever Nose: denies: Congestion Cardiac: denies: Chest pain / pressure Respiratory: denies: Dyspnea, Cough GI: denies: Abdominal Pain, Nausea, Vomiting, Diarrhea : denies: Dysuria Skin: denies: Rash Musculoskeletal: denies: Neck pain, Back pain, Extremity pain (Bilateral leg weakness) Neurologic: reports: Generalized weakness. denies: Syncope, Headache, Head injury PD PAST MEDICAL HISTORY - Past Medical History Cardiovascular: Hypertension, High cholesterol Respiratory: Shortness of breath, Other Endocrine/Autoimmune: Other GI: GERD, Other : Nocturia, Other HEENT: None Psych: Anxiety Musculoskeletal: Osteoarthritis Derm: None - Past Surgical History Past Surgical History: Yes General: Cholecystectomy, Appendectomy, Colonoscopy, EGD Ortho: Rotator cuff repair, Spine surgery HEENT: Tonsil/Adenoidectomy Derm: Skin cancer surgery, Other - Present Medications Home Medications: Ambulatory Orders Medication Instructions Recorded Confirmed Aspirin [Aspir 81] 81 mg PO DAILY 02/26/15 02/12/20 Amlodipine Besylate 5 mg PO DAILY 02/12/20 02/12/20 Colchicine [Colcrys] 0.6 mg PO DAILY 02/12/20 02/12/20 Pantoprazole Sodium [Protonix] 40 mg PO QDAC 02/12/20 02/12/20 Testosterone Cypionate 200 mg IM Q14D 02/12/20 02/12/20 [Depo-Testosterone] allopurinoL [Allopurinol] 300 mg PO DAILY 02/12/20 02/12/20 lisinopriL [Lisinopril] 20 mg PO DAILY 02/12/20 02/12/20 Docusate Sodium 250Mg Capsule 250 mg PO DAILY #30 capsule 02/13/20 [Colace 250Mg Capsule] Gabapentin [Neurontin] 300 mg PO TID #90 capsule 02/13/20 HYDROcodone/ACET 10/325 [[place] 10 1 tab PO Q4HR PRN #30 tablet 02/13/20 mg/325 mg] Pantoprazole [Protonix] 40 mg PO QDAC tablet 02/13/20 allopurinoL [Zyloprim] 300 mg PO DAILY tablet 02/13/20 amLODIPine [Norvasc] 5 mg PO DAILY tablet 02/13/20 - Allergies Allergies/Adverse Reactions: Allergies Allergy/AdvReac Type Severity Reaction Status Date / Time No Known Drug Allergies Allergy Verified 01/06/22 04:59 - Social History Does the pt smoke?: No Smoking Status: Former smoker Does the pt drink ETOH?: Yes Does the pt have substance abuse?: No - Immunizations Immunizations are current?: Yes - POLST Patient has POLST: No PD ED PE NORMAL - General General: Alert and oriented X 3, No acute distress, Well developed/nourished - HEENT HEENT: Atraumatic, Moist mucous membranes - Neck Neck: Supple, no meningeal sign, No bony TTP - Cardiac Cardiac: RRR, No murmur, Strong equal pulses - Respiratory Respiratory: No respiratory distress, Clear bilaterally - Abdomen Abdomen: Normal bowel sounds, Soft, Non tender - Derm Derm: Normal color, No rash - Extremities Extremities: No tenderness to palpate, Normal ROM s pain, No edema, No calf tenderness / cord, Other (Intact distal pulses, compartments of extremities are soft, ) - Neuro Neuro: Alert and oriented X 3, seating upholsterer 2-12 intact, No motor deficit, Normal speech Eye Opening: Spontaneous Motor: Obeys Commands Verbal: Oriented GCS Score: 15 - Psych Psych: Normal mood, Normal affect Results - Vitals Vitals: Vital Signs - 24 hr 01/06/22 01/06/22 01/06/22 04:13 06:20 06:33 Temperature 36.5 C 36.5 C Heart Rate 68 66 65 Respiratory 18 13 13 Rate Blood Pressure 121/68 110/73 110/73 O2 Saturation 98 94 94 Oxygen O2 Source Room air - EKG (time done) 0435 Rate: Rate (enter#) (67) Rhythm: NSR Ischemia: No: ST elevation c/w ischemia Other comments: Other comments (Significant motion artifact in multiple leads, RN unable to get a better EKG) - Labs Labs: Laboratory Tests 01/06/22 01/06/22 04:53 04:53 WBC 9.4 RBC 4.25 L Hgb 14.9 Hct 42.1 MCV 99.1 H MCH 35.1 H MCHC 35.4 RDW 13.1 Plt Count 195 MPV 10.7 Neut # (Auto) 4.4 Lymph # (Auto) 3.4 Gem # (Auto) 1.1 H Eos # (Auto) 0.3 Baso # (Auto) 0.1 Absolute Nucleated RBC 0.00 Nucleated RBC % 0.0 Sodium 131 L Potassium 3.7 Chloride 98 L Carbon Dioxide 20 L Anion Gap 13.0 BUN 13 Creatinine 1.1 Estimated GFR (MDRD) 66 L Glucose 85 Calcium 8.8 Total Bilirubin 0.7 AST 71 H ALT 71 H Alkaline Phosphatase 69 Total Protein 7.2 Albumin 4.2 Globulin 3.0 Albumin/Globulin Ratio 1.4 Lipase 44 Ethyl Alcohol 199.9 PD MEDICAL DECISION MAKING - ED course Complexity details: reviewed results, re-evaluated patient, d/w patient, d/w family ED course: Patient brought in for leg weakness. Does have a history of heavy alcohol use. On exam has no focal weakness. Neurovascularly intact. No signs of DVT or infection to lower extremities. Labs reviewed with mild hyponatremia. Patient was given IV fluids and had improvement in his symptoms. He was able to ambulate back to his baseline.Although his alcohol level is elevated, he is clinically sober with clear speech and ambulatory on his own. Therefore I feel he is stable at this point for discharge and his is at the bedside to take him home. 0615 -Pt able to ambulate, ready to go home, waiting for to pick him up. Departure - Departure Disposition: 01 Home, Self Care Clinical Impression: Hyponatremia, Alcohol abuse, Leg weakness, bilateral Condition: Stable Instructions: ED Hyponatremia, ED Muscle Pain Leg Cramps Comments: Michel you were evaluated for bilateral leg weakness. Your labs showed a slightly low sodium level. You were given IV fluids to help with this along with the muscle cramps and leg weakness. Your symptoms appear to improve while in the emergency department. Please follow-up with your primary care doctor and continue to stay hydrated at home with water. Your alcohol level was also elevated.Based on your history I am concerned that you are using too much alcohol every day. Please consider talking to your doctor regarding resources on how to get help for this - There are medications and programs available that may help you Decrease your dependency on alcohol. Discharge Date/Time: 01/06/22 06:47
[2022-01-06 05:14] LABS: ALBUMIN 4.2 g/dL (3.2-5.5); ALBUMIN/GLOBULIN RATIO 1.4 (1.0-2.2); BILIRUBIN,TOTAL 0.7 mg/dL (0.2-1.0); CALCIUM 8.8 mg/dL (8.5-10.3); CREATININE 1.1 mg/dL (0.6-1.2); ETOH - ETHANOL 199.9 mg/dL; POTASSIUM 3.7 mmol/L (3.5-5.0); TOTAL PROTEIN 7.2 g/dL (6.7-8.2)
[2022-01-06 06:29] VITALS: BP 110/73
== END 2022-01-06 06:47 | disposition home or self-care (01) ==
LOC: ED 04:11
DX: M62.81 Muscle weakness (generalized) (principal); F10.10 Alcohol abuse, uncomplicated; Y90.6 Blood alcohol level of 120-199 mg/100 ml; E87.1 Hypo-osmolality and hyponatremia; I10 Essential (primary) hypertension; Z87.891 Personal history of nicotine dependence; Z79.82 Long term (current) use of aspirin
CPT/HCPCS: 36415; 80053; 83690; 85025; 93005; 96360; 99284; G0480; 80320; 84484

== ENCOUNTER 2022-01-29 10:36 | Outpatient (CLI) | payer MEDICARE, OTHER ==
[2022-01-29 10:52] LABS: BASOPHILS # (AUTO) 0.1 10^3/uL (0.0-0.1); BASOPHILS % (AUTO) 1.2 %; EOSINOPHILS # (AUTO) 0.3 10^3/uL (0.0-0.7); EOSINOPHILS % (AUTO) 4.5 %; HCT - HEMATOCRIT 40.7 % (42.0-52.0); HGB - HEMOGLOBIN 14.4 g/dL (14.0-18.0); LYMPHOCYTES # (AUTO) 2.1 10^3/uL (1.5-3.5); LYMPHOCYTES % (AUTO) 30.5 %; MEAN CORPUSCULAR HGB CONC 35.4 g/dL (32.0-36.0); MEAN CORPUSCULAR VOLUME 98.8 fL (80.0-94.0); MEAN PLATELET VOLUME 10.6 fL (7.4-11.4); MONOCYTES # (AUTO) 0.7 10^3/uL (0.0-1.0); MONOCYTES % (AUTO) 10.7 %; NEUTROPHILS # (AUTO) 3.6 10^3/uL (1.5-6.6); NEUTROPHILS % (AUTO) 52.1 %; PLT - PLATELET COUNT 178 10^3/uL (130-450); RED BLOOD COUNT 4.12 10^6/uL (4.70-6.10); RED CELL DISTRIBUTION WIDTH 12.8 % (12.0-15.0); WHITE BLOOD COUNT 6.9 x10^3/uL (4.8-10.8)
[2022-01-29 11:14] LABS: ALBUMIN 4.1 g/dL (3.2-5.5); ALBUMIN/GLOBULIN RATIO 1.4 (1.0-2.2); ALKALINE PHOSPHATASE 71 IU/L (42-121); ALT ALANINE AMINOTRANSFERASE 75 IU/L (10-60); AST ASPARTATE AMINOTRANSFERASE 87 IU/L (10-42); BILIRUBIN,TOTAL 0.8 mg/dL (0.2-1.0); BUN - BLOOD UREA NITROGEN 12 mg/dL (6-20); CARBON DIOXIDE - CO2 21 mmol/L (21-32); CHLORIDE 102 mmol/L (101-111); CHOL/HDL RATIO 3.6 (<5.0); CHOLESTEROL 179 mg/dL; GFR - MDRD 73 (>89); GLUCOSE 87 mg/dL (70-100); HDL CHOLESTEROL 50 mg/dL; POTASSIUM 4.3 mmol/L (3.5-5.0); SODIUM 135 mmol/L (135-145); TOTAL PROTEIN 7.1 g/dL (6.7-8.2); TRIGLYCERIDES 416 mg/dL; URIC ACID 3.4 mg/dL (2.6-7.2)
[2022-01-29 11:42] LABS: LDL CHOLESTEROL,DIRECT 68 mg/dL; LDLD/HDL RATIO 1.4 (<3.6)
== END 2022-01-29 10:37 | disposition home or self-care (01) ==
LOC: LAB 10:36
PROVIDERS: ATTEND Internal Medicine
DX: I10 Essential (primary) hypertension (principal); Z12.5 Encounter for screening for malignant neoplasm of prostate; Z79.899 Other long term (current) drug therapy; E29.1 Testicular hypofunction; D50.9 Iron deficiency anemia, unspecified; E78.1 Pure hyperglyceridemia; M10.9 Gout, unspecified
CPT/HCPCS: 36415; 80053; 80061; 83721; 84443; 84550; 85025; G0103; 84153

== ENCOUNTER 2022-07-21 13:19 | Outpatient (CLI) | payer MEDICARE, OTHER | END 2022-07-21 13:20 | disposition home or self-care (01) | LOC: LAB 13:19 | PROVIDERS: ATTEND Urology | DX: Z85.51 Personal history of malignant neoplasm of bladder (principal) | CPT/HCPCS: 36415; 84153 ==

== ENCOUNTER 2022-10-06 10:20 | Outpatient (CLI) | payer MEDICARE, OTHER ==
[2022-10-06 10:33] LABS: BASOPHILS # (AUTO) 0.1 10^3/uL (0.0-0.1); EOSINOPHILS # (AUTO) 0.3 10^3/uL (0.0-0.7); EOSINOPHILS % (AUTO) 4.9 %; HCT - HEMATOCRIT 39.5 % (42.0-52.0); HGB - HEMOGLOBIN 13.4 g/dL (14.0-18.0); LYMPHOCYTES # (AUTO) 1.8 10^3/uL (1.5-3.5); LYMPHOCYTES % (AUTO) 29.2 %; MEAN CORPUSCULAR HEMOGLOBIN 34.2 pg (27.0-31.0); MEAN CORPUSCULAR HGB CONC 33.9 g/dL (32.0-36.0); MEAN CORPUSCULAR VOLUME 100.8 fL (80.0-94.0); MEAN PLATELET VOLUME 10.3 fL (7.4-11.4); MONOCYTES # (AUTO) 0.6 10^3/uL (0.0-1.0); MONOCYTES % (AUTO) 10.5 %; NEUTROPHILS # (AUTO) 3.3 10^3/uL (1.5-6.6); NEUTROPHILS % (AUTO) 53.6 %; PLT - PLATELET COUNT 208 10^3/uL (130-450); RED BLOOD COUNT 3.92 10^6/uL (4.70-6.10); RED CELL DISTRIBUTION WIDTH 13.6 % (12.0-15.0); WHITE BLOOD COUNT 6.1 x10^3/uL (4.8-10.8)
[2022-10-06 10:55] LABS: ALBUMIN 4.4 g/dL (3.2-5.5); ALBUMIN/GLOBULIN RATIO 1.3 (1.0-2.2); ALKALINE PHOSPHATASE 65 IU/L (42-121); ALT ALANINE AMINOTRANSFERASE 83 IU/L (10-60); AST ASPARTATE AMINOTRANSFERASE 60 IU/L (10-42); BILIRUBIN,TOTAL 0.6 mg/dL (0.2-1.0); BUN - BLOOD UREA NITROGEN 17 mg/dL (6-20); CALCIUM 9.1 mg/dL (8.5-10.3); CARBON DIOXIDE - CO2 22 mmol/L (21-32); CHLORIDE 100 mmol/L (101-111); CHOL/HDL RATIO 4.6 (<5.0); CHOLESTEROL 211 mg/dL; GFR - MDRD 73 (>89); GLUCOSE 104 mg/dL (70-100); HDL CHOLESTEROL 46 mg/dL; LDL CHOLESTEROL,CALCULATED 100 mg/dL; LDL/HDL RATIO 2.2 (<3.6); POTASSIUM 4.1 mmol/L (3.5-5.0); SODIUM 136 mmol/L (135-145); TOTAL PROTEIN 7.7 g/dL (6.7-8.2); TRIGLYCERIDES 326 mg/dL; VLDL CHOLESTEROL 65 mg/dL
== END 2022-10-06 10:21 | disposition home or self-care (01) ==
LOC: LAB 10:20
PROVIDERS: ATTEND Internal Medicine
DX: I10 Essential (primary) hypertension (principal); E78.1 Pure hyperglyceridemia; E29.1 Testicular hypofunction; D50.9 Iron deficiency anemia, unspecified; Z79.899 Other long term (current) drug therapy
CPT/HCPCS: 36415; 80053; 80061; 83721; 84443; 85025